=== PATIENT | male | born 1955 | race Caucasian/White ===

== ENCOUNTER 2023-07-25 06:09 | Day surgery (SDC) | payer MEDICARE, BC ==
[~2023-07-25] VITALS: Ht 180.3 cm; Wt 91.6 kg
[2023-07-25] VITALS (8 sets, daily range): BP systolic 108–126; BP diastolic 57–81; PULSE 63–72; RESP 15–16; TEMP 98; O2SAT 97–98
[2023-07-25] MEDS ORDERED: cefazolin 2gm/D5W 100mL 100 ML IV ONE (06:32)
[2023-07-25] MEDS ORDERED: RIVA20TA PO (06:38)
[2023-07-25] MEDS ORDERED: ASPI81TA52 PO (06:38)
[2023-07-25] MEDS ORDERED: METO-395 PO (06:38)
[2023-07-25] MEDS ORDERED: ROSU40TA22 PO (06:38)
[2023-07-25] MEDS: normal saline 1000ml 1,000 ML IV SCH (07:27)
[2023-07-25] MEDS: vancomycin 1,500 MG in NS 300ml IV soln IV ONE (07:27)
[2023-07-25 07:30] LABS: ALBUMIN 3.6 G/DL (3.4-5.0); ANION GAP 8 (8-16); BLOOD UREA NITROGEN 17 MG/DL (7-18); BUN/CREATININE RATIO 22.1 (10.0-20.0); CALCIUM 8.9 MG/DL (8.5-10.1); CHLORIDE 106 MMOL/L (99-107); CREATININE 0.77 MG/DL (0.60-1.10); GLUCOSE 120 MG/DL (70-104); MAGNESIUM 2.3 MG/DL (1.5-2.4); SODIUM 141 MMOL/L (135-145); TOTAL CARBON DIOXIDE 26.9 MMOL/L (24-32); eCRCL 98 ML/MIN; eGFR > 90 ML/MIN
[2023-07-25 07:38] LABS: POTASSIUM 4.4 MMOL/L (3.5-5.1)
[2023-07-25 07:57] LABS: INR 1.1 INR; PROTHROMBIN TIME 11.8 SECONDS (9.0-12.0)
[2023-07-25 08:05] LABS: BASOPHILS # (AUTO) 0.1 X10'3 (0-0.2); BASOPHILS % (AUTO) 0.9 % (0-1); EOSINOPHILS # (AUTO) 0.1 X10'3 (0-0.9); EOSINOPHILS % (AUTO) 2.2 % (0-6); HEMATOCRIT 44.8 % (42.0-52.0); HEMOGLOBIN 15.4 g/dl (14.0-17.9); LYMPHOCYTES % (AUTO) 35.3 % (21-51); MEAN CORPUSCULAR HEMOGLOBIN 30.7 PG (27.0-31.0); MEAN CORPUSCULAR HGB CONC 34.4 g/dL (33.0-36.5); MEAN CORPUSCULAR VOLUME 89.2 FL (78-98); MEAN PLATELET VOLUME 8.3 FL (7.4-10.4); MONOCYTES # (AUTO) 0.6 X10'3 (0-0.9); MONOCYTES % (AUTO) 11.2 % (2-12); NEUTROPHILS # (AUTO) 2.8 X10'3 (1.8-7.7); NEUTROPHILS % (AUTO) 50.4 % (42-75); PLATELET COUNT 160 X10'3 (140-440); RED BLOOD COUNT 5.02 X10'6 (4.70-6.10); RED CELL DISTRIBUTION WIDTH 14.1 % (11.5-14.5); WHITE BLOOD COUNT 5.7 X10'3 (4.5-11.0)
[2023-07-25] MEDS ORDERED: LIDOcaine 1% w/EPI 1:100,000 inj. MDV 50 ML VIAL ONE (08:44)
[2023-07-25] MEDS ORDERED: vancomycin 1,000mg inj ONE (08:45)
[2023-07-25] MEDS ORDERED: midazolam 1 mg/ML 2ml injection ONE (08:45)
[2023-07-25] MEDS ORDERED: fentaNYL/PF 50MCG/1 ML 2ML syringe ONE (08:45)
== END 2023-07-25 12:40 | disposition home or self-care (01) ==
LOC: CATH LAB 06:09
PROVIDERS: ATTEND Internal Medicine Cardiovascular Disease
DX: Z45.010 Encounter for checking and testing of cardiac pacemaker pulse generator [battery] (principal); I25.118 Atherosclerotic heart disease of native coronary artery with other forms of angina pectoris; E78.5 Hyperlipidemia, unspecified; I48.0 Paroxysmal atrial fibrillation; Z79.82 Long term (current) use of aspirin; Z79.899 Other long term (current) drug therapy; Z95.5 Presence of coronary angioplasty implant and graft; Z98.890 Other specified postprocedural states; Z82.49 Family history of ischemic heart disease and other diseases of the circulatory system
CPT/HCPCS: 33228; 36415; 80048; 83735; 85025; 85610; 93005; 99152; 99153; C1785; J0690; J2250; J3010; J3370; J3490; J7030